=== PATIENT | female | born 1940 | race Caucasian/White ===

== ENCOUNTER → 2016-09-17 | Outpatient (CLI) | payer MEDICARE ==
[~2016-09-17] MED LIST: ASA CHILDREN'S81 MG PO; CALTRATE-600 W600 MG PO; CLEOCIN HCL300 MG PO; DIOVAN HCT 160/1 TAB PO; GLUCOPHAGE500 MG PO; MONTELUKAST SOD10 MG PO; NORVASC5 MG PO; OMEGA-3 DPS1000 MG PO; PLAQUENIL DPS200 MG PO; RELAFEN DPS750 MG PO; SYNTHROID50 MCG PO; THERA1 EACH PO; ZOCOR80 MG PO; ZOVIRAX400 MG PO
== END | disposition home or self-care (01) ==
LOC: RAD.S 14:57
DX: R10.9 Unspecified abdominal pain (principal); K80.20 Calculus of gallbladder without cholecystitis without obstruction; N28.1 Cyst of kidney, acquired; K42.9 Umbilical hernia without obstruction or gangrene; M47.895 Other spondylosis, thoracolumbar region; Z95.0 Presence of cardiac pacemaker

== ENCOUNTER → 2016-09-28 | Outpatient (CLI) | payer MEDICARE | END | disposition home or self-care (01) | LOC: RAD.S 08:01 | DX: K80.20 Calculus of gallbladder without cholecystitis without obstruction (principal); R10.11 Right upper quadrant pain; R93.5 Abnormal findings on diagnostic imaging of other abdominal regions, including retroperitoneum; N28.1 Cyst of kidney, acquired ==

== ENCOUNTER 2016-10-12 08:41 | Day surgery (SDC) | payer MEDICARE ==
[~2016-10-12] VITALS: Ht 162.6 cm; Wt 108.9 kg
--- NOTE | 2016-10-29 11:47 | OR ---
ADMIT: 10/12/2016 RM/LOC: [facility] MR#: [id number] [address] [address] CAROLYNE PATTERSON [address] [place] [address] Operative/Delivery Room Report SEX: F AGE: 75 : 1940 SURGERY DATE: 10/12/2016 SURGEON: Noble Black MD PREOPERATIVE DIAGNOSIS: Chronic cholecystitis and cholelithiasis. POSTOPERATIVE DIAGNOSIS: Chronic cholecystitis and cholelithiasis. FINAL PATHOLOGY: Pending. PROCEDURE: Laparoscopic cholecystectomy and laparoscopic lysis of adhesions. CUSTOMER SERVICE DRIVER: MINAL Trinidad, was necessary for adequate exposure, retraction, and completion of this case. ANESTHESIA: General endotracheal tube anesthesia. ESTIMATED BLOOD LOSS: 25 mL or less. SPECIMEN: Gallbladder contents to Pathology. INDICATION FOR PROCEDURE: Please see H and P. DESCRIPTION OF PROCEDURE: After the risks, benefits, possible complications, and the alternatives had been explained, and informed consent had been obtained, the patient was taken back to the operating room, underwent general endotracheal tube anesthesia, and the surgical field was prepped and draped in a sterile manner. A supraumbilical incision was made. The Veress needle was inserted. The abdomen was insufflated with CO2. Once there was adequate insufflation, a 5 mm port was placed, and the camera was placed through this port site. Immediately you could see there was fair amount of adhesions of omentum up to her right abdomen, and I did remove them as these were in the way for my 5 mm ports. I was able to place my 11 mm epigastric port and then used electrocautery scissors to take some of these down as seen in picture #1 and giving enough room to put my two 5 mm ports in the right upper quadrant. Once this was done, the adhesions were taken down. I placed two 5 mm ports, the gallbladder was raised, you could see the adhesions of omentum to it. ADMIT: 10/12/2016 RM/LOC: [facility] MR#: [id number] [id number] [place], [place] [address] CAROLYNE PATTERSON [address] [place] [address] Operative/Delivery Room Report SEX: F AGE: 75 : 1940 Slowly cleaned these down, cleaned some of the duodenal off it, slowly dissected out and the anterior artery first. It was clipped proximally, distally, and divided. Behind this cystic duct was dissected out clipped proximally, distally, and divided. Then, the gallbladder was removed from the liver bed using electrocautery and Endo Shear, it was placed in EndoCatch bag and removed through the epigastric port site. I irrigated and removed as much irrigation as possible. Things appeared dry, did not see signs of any issues with the clips. Liver bed was dry. I injected 0.5% Marcaine in the incision sites for pain control. Closed the fascia of the epigastric port site with an 0-Polysorb suture using the suture passer, and then the skin was all closed with 4-0 Monocryl after the ports were removed. Tolerated the procedure well, was extubated and taken to recovery room in stable and satisfactory condition. Noble Black MD/ arcelia JOB #: [id number] CC: Noble Black, Attending Physician Noble Sandhu, Family Physician
== END 2016-10-12 18:51 | disposition home or self-care (01) ==
LOC: SSS 08:41
PROC: 0FT44ZZ Resection of Gallbladder, Percutaneous Endoscopic Approach (ICD-10-PCS; principal; 2016-10-12)
PROC: 0FN44ZZ Release Gallbladder, Percutaneous Endoscopic Approach (ICD-10-PCS; principal; 2016-10-12)
DX: K80.10 Calculus of gallbladder with chronic cholecystitis without obstruction (principal); I10 Essential (primary) hypertension; E78.5 Hyperlipidemia, unspecified; E66.9 Obesity, unspecified; M19.90 Unspecified osteoarthritis, unspecified site; E11.9 Type 2 diabetes mellitus without complications; E03.9 Hypothyroidism, unspecified; Z79.899 Other long term (current) drug therapy; Z98.890 Other specified postprocedural states; Z88.8 Allergy status to other drugs, medicaments and biological substances